=== PATIENT | female | born 1990 | race Two or more races ===

== ENCOUNTER 2024-08-31 09:10 | Inpatient (IN) | payer MEDICAID, OTHER ==
[~2024-08-31] VITALS: Ht 172.7 cm; Wt 127.6 kg
[2024-08-31 10:12] VITALS: PULSE 77; RESP 16; O2SAT 95
--- NOTE | 2024-08-31 10:17 | ECG ---
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
--- NOTE | 2024-08-31 10:21 | ED.PDOC ---
HPI Comments 33 y.o female presents to the ED for a chief complaint of substernal chest pain x 2 days associated with new onset RUQ pain, SOB, dysuria nausea and vomiting. Patient describes chest and abdominal pain as sharp, non radiating, and rating a 6/10 on the pain scale. Patient denies any cardiac history, fever, chills or leg swelling. Patient denies medical history. 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 History Family History Family History: Reviewed,noncontributory to illness Social History Smoker: Non-Smoker Alcohol: Denies ETOH Use Drugs: Denies Drug Use Lives In: Home Constitutional: denies: chills, diaphoresis, fatigue, fever, malaise, sweats, weakness, others EENTM: denies: blurred vision, double vision, ear bleeding, ear discharge, ear drainage, ear pain, ear ringing, eye pain, eye redness, hearing loss, mouth pain, mouth swelling, nasal discharge, nose bleeding, nose congestion, nose pain, photophobia, tearing, throat pain, throat swelling, voice changes, others Respiratory: reports: shortness of breath; denies: cough, hemoptysis, orthopnea, SOB at rest, SOB with excertion, stridor, wheezing, others Cardiovascular: reports: chest pain; denies: dizzy spells, diaphoresis, Dyspnea on exertion, edema, irregular heart beat, left arm pain, lightheadedness, palpitations, PND, syncope, others Gastrointestinal: reports: abdominal pain, nausea, vomiting; denies: abdomen distended, blood streaked bowels, constipated, diarrhea, dysphagia, difficulty swallowing, hematemesis, melena, poor appetite, poor fluid intake, rectal bleeding, rectal pain, others Genitourinary: denies: abnormal vagina bleeding, burning, dyspareunia, dysuria, flank pain, frequency, hematuria, incontinence, pain, , vagina discharge, urgency, others Neurological: denies: dizziness, fainting, headache, left sided numbness, left sided weakness, numbness, paresthesia, pre-existing deficit, right sided numbness, right sided weakness, seizure, speech problems, tingling, tremors, weakness, others Musculoskeletal: denies: back pain, gout, joint pain, joint swelling, muscle pain, muscle stiffness, neck pain, others Integumetry: denies: bruises, change in color, change in hair/nails, dryness, laceration, lesions, lumps, rash, wounds, others Allergic/Immunocompromised: denies: Difficulty Healing, Frequent Infections, Hives, Itching, others Hematologic/Lymphatic: denies: anemia, blood clots, easy bleeding, easy bru ising, swollen glands, others Endocrine: denies: excessive hunger, excessive sweating, excessive thirst, e xcessive urination, flushing, intolerance to cold, intolerance to heat, unexplained weight gain, unexplained weight loss, others Psychiatric: denies: anxiety, bipolar disorder, depression, hopeless, panic disorder, schizophrenia, sleepless, suicidal, others All Other Systems: Reviewed and Negative Physical Exam General Appearance: Moderate Distress HEENT: Normal ENT Inspection, Pharynx Normal, TMs Normal Neck: Full Range of Motion, Non-Tender, Normal, Normal Inspection Respiratory: Chest Non-Tender, Lungs Clear, No Accessory Muscle Use, No Respiratory Distress, Normal Breath Sounds Cardiovascular: No Edema, No JVD, No Murmur, No Gallop, Normal Peripheral Pulses, Regular Rate/Rhythm Breast Exam: Deferred Gastrointestinal: Epigastric, No Organomegaly, No Pulsatile Mass, Normal Bowel Sounds, Soft, Tenderness Genitalia: Deferred Pelvic: Deferred Rectal: Deferred Extremities: No calf tenderness, Normal capillary refill, Normal inspection, Normal range of motion, Non-tender, No pedal edema Musculoskeletal : Apperance: Normal 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 Was a procedure done?: No CP Differential Dx Differential Diagnosis: N/A Differential Diagnosis: Angina, Chest Wall Pain, Cholelithiasis, Costochondritis, Esophageal reflux/spasm, Gastritis, Myocardial Infarction, Pericarditis X-Ray, Labs, Meds, VS Vital Signs Date Time Temp Pulse Resp B/P (MAP) Pulse Ox O2 Delivery O2 Flow Rate FiO2 08/31/24 10:21 73 08/31/24 10:16 73 08/31/24 10:12 77 16 95 Room Air* 0 21 08/31/24 10:12 98.0 77 16 114/74 (87) 95 98.0 08/31/24 09:23 98.2 81 16 149/101 (117) 99 98.2 Lab Test 08/31/24 10:31 Range/Units White Blood Count 7.4 4.4-10.8 10^3/uL Red Blood Count 4.92 4.0-5.20 10^6/uL Hemoglobin 13.9 12.2-16.2 g/dL Hematocrit 42.2 36.0-46.0 % Mean Corpuscular Volume 85.8 80.0-100.0 fL Mean Corpuscular Hemoglobin 28.3 28.0-32.0 pg Mean Corpuscular Hemoglobin Concent 33.0 32.0-36.0 g/dL Red Cell Distribution Width 14.0 11.8-14.3 % Platelet Count 303 140-450 10^3/uL Mean Platelet Volume 8.5 6.9-10.8 fL Neutrophils (%) (Auto) 59.0 37.0-80.0 % Lymphocytes (%) (Auto) 32.6 10.0-50.0 % Monocytes (%) (Auto) 5.8 0.0-12.0 % Eosinophils (%) (Auto) 2.0 0.0-7.0 % Basophils (%) (Auto) 0.6 0.0-2.0 % Neutrophils # (Auto) 4.4 1.6-8.6 10 ^3/uL Lymphocytes # (Auto) 2.4 0.4-5.4 10 ^3/uL Monocytes # (Auto) 0.4 0-1.3 10 ^3/uL Eosinophils # (Auto) 0.1 0-0.8 10 ^3/uL Basophils # (Auto) 0 0-0.2 10 ^3/uL Nucleated Red Blood Cells 0.1 % Sodium Level 139 136-145 mmol/L Potassium Level 4.5 3.5-5.1 mmol/L Chloride Level 106 98-107 mmol/L Carbon Dioxide Level 25 20-31 mmol/L Anion Gap 8 5-15 Blood Urea Nitrogen 12 9-23 mg/dL Creatinine 0.59 0.550-1.02 mg/dL Glomerular Filtration Rate Calc 120 >90 mL/min BUN/Creatinine Ratio 20.3 H 10.0-20.0 Serum Glucose 97 74-106 mg/dL Calcium Level 10.1 8.7-10.4 mg/dL Total Bilirubin 0.4 0.2-1.0 mg/dL Aspartate Amino Transferase (AST) 36 13-40 U/L Alanine Aminotransferase (ALT) 35 7-40 U/L Alkaline Phosphatase 56 46-116 U/L Troponin I High Sensitivity < 3 L </=34 ng/L Total Protein 7.7 5.7-8.2 g/dL Albumin 4.9 H 3.2-4.8 g/dL Lipase 47 12-53 U/L Current Medications Medications (Trade) Dose Ordered Sig/Chase Route Start Time Stop Time Status Last Admin Sodium Chloride 500 ml @ 500 mls/hr Q1H ONCE IVB 08/31/24 10:15 08/31/24 11:14 DC 08/31/24 10:30 IV Hep-Lock was established The CBC and chemistry panel are within normal limits The lipase is within normal limits The patient was given normal saline at a 500 cc bolus At this time, the patient was being admitted to the hospitalist The patient was being diagnosed with a acute cholelithiasis The patient was being admitted at this time Images Reviewed?: Images reviewed and evaluated by me Time of 1ST Reevaluation: 10:21 Reevaluation 1ST: Unchanged Patient Education/Counseling: Diagnosis, Treatment, Prognosis Family Education/Counseling: No Family Present Departure 1 Departure Time of Disposition: 11:53 Impression: Primary Impression: Intractable abdominal pain Additional Impression: Cholelithiasis Qualified Codes: K80.20 - Calculus of gallbladder without cholecystitis without obstruction Disposition: ADMITTED INPATIENT Admit to: Med Surg Condition: Fair Critical Care Note Critical Care Time?: No Stability Stability form required: Yes Unstable for transfer: ED Physician Assesment (Clinical assesment) Heart Score Heart Score: Heart Score Response (Comments) Value History Slightly Suspicious 0 EKG Normal 0 Age <45 0 Risk Factors No known risk factors 0 Troponin N/A 0 Total 0 I personally scribed for ANYA GUAMAN MD ([email or web address]) on 08/31/24 at 10:21. El ectronically submitted by Anjana Loza ([facility]). ANYA GUAMAN MD Aug 31, 2024 10:21
[2024-08-31] MEDS: SODIUM CHLORIDE 0.9% 500 ML IVB ONE (10:30)
[2024-08-31 10:56] LABS: Basophils # (auto) 0 10 ^3/uL (0-0.2); Basophils % (auto) 0.6 % (0.0-2.0); Eosinophils # (auto) 0.1 10 ^3/uL (0-0.8); Hematocrit 42.2 % (36.0-46.0); Hemoglobin 13.9 g/dL (12.2-16.2); Lymphocytes # (auto) 2.4 10 ^3/uL (0.4-5.4); Lymphocytes % (auto) 32.6 % (10.0-50.0); Mean Corpuscular Hemoglobin 28.3 pg (28.0-32.0); Mean Corpuscular Volume 85.8 fL (80.0-100.0); Monocytes # (auto) 0.4 10 ^3/uL (0-1.3); Monocytes % (auto) 5.8 % (0.0-12.0); Neutrophils # (auto) 4.4 10 ^3/uL (1.6-8.6); Nucleated Red Blood Cells % 0.1 %; Platelet Count (auto) 303 10^3/uL (140-450); Red Blood Cells 4.92 10^6/uL (4.0-5.20); White Blood Cell 7.4 10^3/uL (4.4-10.8)
--- NOTE | 2024-08-31 10:57 | DVH ---
INDICATION: pain TECHNIQUE: Multiple real-time sonographic images were obtained of the right upper quadrant. COMPARISON: None FINDINGS: The liver demonstrates heterogeneous echotexture without focal mass lesions. The liver chelsy sures 41.6 cm. There is no intrahepatic or extrahepatic ductal dilatation. The common duct measures 0.6 cm. Multiple stones are seen. The gallbladder wall measures 0.2 cm and is within normal limits. The right kidney measures 11.3 cm. The right kidney is normal in contour, size, and shape. The echo genicity is normal. Mild right kidney hydronephrosis The pancreas is not well visualized due to overlying bowel gas. IMPRESSION: 1. Cholelithiasis without evidence of cholecystitis. 2. Mild right-sided hydronephrosis. 3. Hepatomegaly with steatosis.
[2024-08-31 11:07] LABS: Alanine Aminotransferase 35 U/L (7-40); Albumin 4.9 g/dL (3.2-4.8); Alkaline Phosphatase 56 U/L (46-116); Anion Gap 8 (5-15); Aspartate Aminotransferase 36 U/L (13-40); BUN/Creatinine Ratio 20.3 (10.0-20.0); Bilirubin, Total 0.4 mg/dL (0.2-1.0); Blood Urea Nitrogen 12 mg/dL (9-23); Calcium 10.1 mg/dL (8.7-10.4); Carbon Dioxide 25 mmol/L (20-31); Chloride 106 mmol/L (98-107); Glucose 97 mg/dL (74-106); Lipase 47 U/L (12-53); Potassium 4.5 mmol/L (3.5-5.1); Sodium 139 mmol/L (136-145); Total Protein 7.7 g/dL (5.7-8.2)
--- NOTE | 2024-08-31 13:31 | DVHHP2 ---
History of Present Illness Reason for Visit: abd pain History of Present Illness 33-year-old female denies any medical history surgical history tubal ligation chief complaints complains of right upper quadrant abdominal pain radiates to her right chest wall she states he has been going on for three days now. She said this feels like discomfort in his caused her to feel tired and exhausted and weak. She denies any fever does complain of some vomiting no diarrhea. Patient states eating makes her symptoms worse she denies any urinary discomfort or pain. When evaluating patient's labs and imaging CBC was unremarkable CMP unremarkable ultrasound showed gallstones mild right hydroneph rosis hepatomegaly with steatosis. There was no tearing sensation in her abdomen or back. With these findings we will admit Past Medical History Denies medical history Past Surgical History and tubal ligation Family History Reviewed, non-contributory to the management of this case. Past Social History The patient lives at home, denies smoking, alcohol or illicit drugs abuse. Review of Systems Constitutional: No: Fever, Chills, Sweats, Weakness, Malaise, Other Eyes: No: Pain, Vision change, Conjunctivae inflammation, Eyelid inflammation, Other, Redness ENT: No: Ear pain, Ear discharge, Nose pain, Nose discharge, Nose congestion, Mouth pain, Mouth swelling, Throat pain, Throat swelling, Other Respiratory: No: Cough, Dry, Shortness of breath, SOB with excertion, Wheezing, Hemoptysis, Pleuritic Pain, Sputum, Wheezing, Other Cardiovascular: Chest Pain, Palpitations; No: Orthopnea, Paroxysmal Noc. Dyspnea, Edema, Lt Headedness, Other Gastrointestinal: No: Nausea, Vomiting, Abdominal Pain, Diarrhea, Constipation, Melena, Hematochezia, Other Genitourinary: No Dysuria, No Frequency, No Incontinence, No Hematuria, No Retention, No Other Musculoskeletal: No: other, neck pain, shoulder pain, arm pain, back pain, hand pain, leg pain, foot pain Skin: No: Rash, Lesions, Jaundice, Bruising, Other Neurological: No: Weakness, Numbness, Incoordination, Change in speech, Confusion, Seizures, Other Allergies: Coded Allergies: NO KNOWN ALLERGIES (Unverified , 08/31/24) Exam Vital Signs Vital Signs Date Time Temp Pulse Resp B/P (MAP) Pulse Ox O2 Delivery O2 Flow Rate FiO2 08/31/24 11:51 98.8 71 18 124/75 (91) 100 98.8 08/31/24 10:12 Room Air* 0 21 General Appearance: Alert, Oriented X3, Cooperative, No acute distress HEENT: Atraumatic, PERRLA, EOMI, Mucous membr. moist/pink Respiratory: Clear to auscultation, Normal air movement Cardiovascular: Regular rate, Normal S1, Normal S2, No murmurs Abdominal: Normal bowel sounds, Soft, No tenderness, No hepatospenomegaly, No masses Extremities: No clubbing, No cyanosis, No edema, Normal pulses, No tenderness/swelling Skin: No rashes, No breakdown, No significant lesion Neuro: Normal speech, Strength at 5/5 X4 ext, Normal tone, Sensation intact, Cranial nerves 3-12 NL Psych/Mental Status: Mental status NL, Mood NL Labs/Xrays Ultrasound shows gallstones with mild right hydronephrosis hepatomegaly with steatosis I reviewed labs, imaging CT scan abdomen pelvis, EKG and all diagnostic studies on this patient from ED records and the medical chart Labs Test 08/31/24 10:31 Range/Units White Blood Count 7.4 4.4-10.8 10^3/uL Red Blood Count 4.92 4.0-5.20 10^6/uL Hemoglobin 13.9 12.2-16.2 g/dL Hematocrit 42.2 36.0-46.0 % Mean Corpuscular Volume 85.8 80.0-100.0 fL Mean Corpuscular Hemoglobin 28.3 28.0-32.0 pg Mean Corpuscular Hemoglobin Concent 33.0 32.0-36.0 g/dL Red Cell Distribution Width 14.0 11.8-14.3 % Platelet Count 303 140-450 10^3/uL Mean Platelet Volume 8.5 6.9-10.8 fL Neutrophils (%) (Auto) 59.0 37.0-80.0 % Lymphocytes (%) (Auto) 32.6 10.0-50.0 % Monocytes (%) (Auto) 5.8 0.0-12.0 % Eosinophils (%) (Auto) 2.0 0.0-7.0 % Basophils (%) (Auto) 0.6 0.0-2.0 % Neutrophils # (Auto) 4.4 1.6-8.6 10 ^3/uL Lymphocytes # (Auto) 2.4 0.4-5.4 10 ^3/uL Monocytes # (Auto) 0.4 0-1.3 10 ^3/uL Eosinophils # (Auto) 0.1 0-0.8 10 ^3/uL Basophils # (Auto) 0 0-0.2 10 ^3/uL Nucleated Red Blood Cells 0.1 % Sodium Level 139 136-145 mmol/L Potassium Level 4.5 3.5-5.1 mmol/L Chloride Level 106 98-107 mmol/L Carbon Dioxide Level 25 20-31 mmol/L Anion Gap 8 5-15 Blood Urea Nitrogen 12 9-23 mg/dL Creatinine 0.59 0.550-1.02 mg/dL Glomerular Filtration Rate Calc 120 >90 mL/min BUN/Creatinine Ratio 20.3 H 10.0-20.0 Serum Glucose 97 74-106 mg/dL Calcium Level 10.1 8.7-10.4 mg/dL Total Bilirubin 0.4 0.2-1.0 mg/dL Aspartate Amino Transferase (AST) 36 13-40 U/L Alanine Aminotransferase (ALT) 35 7-40 U/L Alkaline Phosphatase 56 46-116 U/L Troponin I High Sensitivity < 3 L </=34 ng/L Total Protein 7.7 5.7-8.2 g/dL Albumin 4.9 H 3.2-4.8 g/dL Lipase 47 12-53 U/L Assessment/Plan Assessment/Plan acute intractable abdominal pain likely from acute gallstones ordered morphine as needed for pain npo for now ordered ivf ordered protonix can consult surgical team ordered preg test fu results acute cholelithiasis N.p.o. for now ordered Ceftriaxone and Flagyl ordered IV fluids ordered General surgery consult follow-up recs ordered Protonix ordered Type and screen, inr ordered Morphine and Zofran acute right hydronephrosis ordered renal us fu results ordered ua fu results acute hepatomegaly and steatosis outpt follow up with gi fen/ppx protonix ivf no dvt ppx since ambulatory scd npo for now plan admit to medicine general surgery consult and evaluation Plan discussed with: Patient Date of Service: Aug 31, 2024 Billing Provider: DENNIS WHITE DNP Common Visit Codes: [id number] INP/OBS CARE (HIGH) DENNIS WHITE DNP Aug 31, 2024 13:31
[2024-08-31] MEDS ORDERED: NITROGLYCERIN 0.4 MG SL TAB SL PRN (14:15)
[2024-08-31] MEDS ORDERED: DOCUSATE SOD 100 MG CAP PO PRN (14:15)
[2024-08-31] MEDS ORDERED: ONDANSETRON HCL 4 MG/2 ML VIAL IV PRN (14:15)
[2024-08-31] MEDS ORDERED: MORPHINE SULFATE INJ 2 MG/ml SYRG IV PRN (14:15)
[2024-08-31 15:10] VITALS: BP 126/79; PULSE 74; RESP 20; TEMP 98.6; O2SAT 98
[2024-08-31 16:53] VITALS: BP 126/79; PULSE 74; RESP 20; TEMP 98.6; O2SAT 98
[2024-08-31] MEDS: SODIUM CHLORIDE 0.9% 1,000 ML IV SCH (17:52)
[2024-08-31] MEDS: PANTOPRAZOLE 40 MG/10 ML VIAL INJ IV ONE (17:52)
[2024-08-31] MEDS: cefTRIAXone 1GM/50ML D5W 50 ML IV ONE (17:53)
[2024-08-31 18:25] LABS: Urine Bacteria None Seen /hpf (None Seen)
[2024-08-31] MEDS: metroNIDAZOLE 500MG/100ML 100 ML IV ONE (18:44)
[2024-08-31 18:45] LABS: Urine Blood Negative /uL (Negative); Urine Clarity Clear (Clear); Urine Color Colorless (Yellow); Urine Protein, UAD Negative (Negative); Urine Specific Gravity 1.007 (1.001-1.035); Urine Squamous Epithelial Cell FEW /hpf (<5); Urine Urobilinogen Normal (Negative); Urine WBC 1 /HPF (0-5)
[2024-08-31 20:00] VITALS: PULSE 72; RESP 18
[2024-08-31 21:00] VITALS: BP 120/60; PULSE 70; RESP 18; TEMP 97.9; O2SAT 98
[2024-09-01] VITALS (8 sets, daily range): BP systolic 100–119; BP diastolic 50–81; PULSE 64–79; RESP 17–18; TEMP 97.6–98.8; O2SAT 92–99
[2024-09-01] MEDS: metroNIDAZOLE 500MG/100ML 100 ML IV SCH (00:21)
--- NOTE | 2024-09-01 04:07 | DVH ---
Exam: CT CT AB PEL WO CON-NO ORAL OR IV History: Eval for kidney stone Comparison Study: Right upper quadrant ultrasound dated 08/31/2024 Technique: Multidetector spiral CT of the abdomen and pelvis was performed from lung bases to pubic s ymphysis. Imaging was performed without intravenous contrast. Coronal and sagittal multiplanar reform ats were obtained from the axial data set by the technologist. Radiation Dose : 1. Abdomen/Pelvis: CTDIvol 21.93 mGy, DLP 1247.38 mGy*cm. Findings: Evaluation of vasculature and solid organs is limited due to lack of intravenous contrast use. Lung Bases: Lung bases are clear. Visualized portions of the heart and pericardium are unremarkable. Liver: The liver is enlarged measuring 25.5 cm in length. Low attenuating liver parenchyma. No foca l lesions. Gallbladder and Biliary Tree: Gallstone. No intrahepatic or extrahepatic biliary ductal dilatation. Spleen: Unremarkable Pancreas: The pancreas is grossly unremarkable. Adrenal Glands: Unremarkable Kidneys: Kidneys are unremarkable without calculi or hydronephrosis. GI tract: The stomach is grossly normal in appearance. No evidence of small bowel wall thickening or abnormal dilatation to suggest bowel obstruction. The colon is unremarkable. The appendix is not visu alized, however no inflammatory changes in the right lower quadrant to suggest acute appendicitis. Peritoneum/mesentery/retroperitoneum. No evidence of free intraperitoneal air. No ascites. No evidenc e of suspicious lymphadenopathy. Abdominal Wall: Unremarkable. Vasculature: The visualized abdominal aorta is normal in size and caliber. Evaluation of abdominal a nd pelvic vessels is limited due to lack of intravenous contrast. Urinary Bladder: Grossly unremarkable for degree of distention. Pelvic Organs: Unremarkable Musculoskeletal: No aggressive focal bony lesions, acute fractures or dislocation. IMPRESSION: 1. No acute process in the abdomen or pelvis. 2. Gallstone. 3. Hepatomegaly and hepatic steatosis. 4. No intrarenal calculi.
[2024-09-01 07:48] LABS: Basophils # (auto) 0 10 ^3/uL (0-0.2); Basophils % (auto) 0.4 % (0.0-2.0); Eosinophils # (auto) 0.1 10 ^3/uL (0-0.8); Eosinophils % (auto) 1.9 % (0.0-7.0); Hematocrit 37.9 % (36.0-46.0); Lymphocytes % (auto) 27.3 % (10.0-50.0); Mean Corpuscular Hemoglobin 29.3 pg (28.0-32.0); Mean Corpuscular Hgb Conc. 34.3 g/dL (32.0-36.0); Mean Corpuscular Volume 85.5 fL (80.0-100.0); Monocytes # (auto) 0.4 10 ^3/uL (0-1.3); Monocytes % (auto) 5.9 % (0.0-12.0); Neutrophils # (auto) 4.8 10 ^3/uL (1.6-8.6); Neutrophils % (auto) 64.5 % (37.0-80.0); Nucleated Red Blood Cells % 0.1 %; Platelet Count (auto) 243 10^3/uL (140-450); Red Blood Cells 4.43 10^6/uL (4.0-5.20); Red Cell Distribution Width 13.9 % (11.8-14.3); White Blood Cell 7.4 10^3/uL (4.4-10.8)
[2024-09-01 08:08] LABS: Alanine Aminotransferase 30 U/L (7-40); Albumin 4.2 g/dL (3.2-4.8); Alkaline Phosphatase 54 U/L (46-116); Anion Gap 10 (5-15); Aspartate Aminotransferase 21 U/L (13-40); BUN/Creatinine Ratio 15.2 (10.0-20.0); Bilirubin, Total 0.6 mg/dL (0.2-1.0); Blood Urea Nitrogen 10 mg/dL (9-23); Calcium 9.8 mg/dL (8.7-10.4); Carbon Dioxide 23 mmol/L (20-31); Potassium 3.9 mmol/L (3.5-5.1); Sodium 141 mmol/L (136-145); Total Protein 6.5 g/dL (5.7-8.2)
[2024-09-01 08:11] LABS: Chloride 108 mmol/L (98-107); Glucose 108 mg/dL (74-106)
[2024-09-01] MEDS: cefTRIAXone 1GM/50ML D5W 50 ML IV SCH (08:44)
[2024-09-01] MEDS: PANTOPRAZOLE 40 MG/10 ML VIAL INJ IV SCH (09:55)
--- NOTE | 2024-09-01 12:36 | DVHPN2 ---
Progress Note Date Seen: Sep 01, 2024 Medical Necessity Reason Pt with a Central, PICC or Fol: No Subjective Patient reports: No new complaints Review of Systems: HEENT:Normal, CVS:Normal, RESPIRATORY:Normal, GI:Normal, :Normal, MSK:Normal, NEURO:Normal Objective vital signs Vital Sign Date Time Temp Pulse Resp B/P (MAP) Pulse Ox O2 Delivery O2 Flow Rate FiO2 09/01/24 09:19 98.1 75 18 105/52 (69) 94 98.1 08/31/24 20:00 Room Air* 0 21 Total Intake and Output 08/31/24 08/31/24 09/01/24 15:00 23:00 07:00 Intake Total 500 ml 540 ml 100 ml Balance 500 ml 540 ml 100 ml medications Current Medications Medications Dose Ordered Sig/Chase Route Start Time Stop Time Status Last Admin Dose Admin Sodium Chloride 1,000 ml @ 120 mls/hr Q8H20M IV 08/31/24 14:15 09/01/24 08:44 120 MLS/HR Ondansetron HCl 4 mg Q4HP PRN IV 08/31/24 14:15 Docusate Sodium 100 mg BIDPRN PRN PO 08/31/24 14:15 Morphine Sulfate 2 mg Q4HPRN PRN IV 08/31/24 14:15 Nitroglycerin 0.4 mg Q5MINP PRN SL 08/31/24 14:15 Ceftriaxone Sodium 50 ml @ 100 mls/hr DAILY@09 IV 09/01/24 09:00 09/01/24 08:44 100 MLS/HR Metronidazole 100 ml @ 100 mls/hr Q8H IV 09/01/24 01:00 09/01/24 09:55 100 MLS/HR Pantoprazole Sodium 40 mg DAILY IV 09/01/24 10:00 09/01/24 09:55 40 MG Examination: GENERAL:Normal, HEENT:Normal, NECK:Normal, LUNGS:Normal, CVS:Normal, ABDOMEN:Normal, MSK:Normal, SKIN:Normal, NEURO:Normal, :Normal laboratory and microbiology Laboratory Tests 09/01/24 06:44 Test 09/01/24 06:44 Range/Units Serum Glucose 108 H 74-106 mg/dL Problem List/Assessment/Plan Problem List/Assessment/Plan #1 abd pain with gallstone: clear liquid diet, iv antibiotics #2 hepatic steatosis #3 morbid obesity wishes to hold off surgery for now Plan discussed with: Patient My Orders My Orders Orders - PAT CLEMONS MD Procedure Category Date Status Time 0.9% Ns 1000 Ml PHA 09/01/24 Verified 12:45 Clear Liq Diet DIET 09/01/24 Verified Lunch Complete Blood Count LAB 09/02/24 Verified 06:00 Comprehensive LAB 09/02/24 Verified Metabolic Panel 06:00 Date of Service: Sep 01, 2024 Billing Provider: PAT CLEMONS MD Common Visit Codes: [id number] INP/OBS CARE(HIGH) PAT CLEMONS MD Sep 01, 2024 12:36
[2024-09-01] MEDS: SODIUM CHLORIDE 0.9% 1,000 ML IV SCH (16:49)
[2024-09-01] MEDS: ACETAMINOPHEN 325 MG TAB PO PRN (21:48)
[2024-09-02 01:00] VITALS: BP 111/67; PULSE 80; RESP 18; TEMP 97.9; O2SAT 98
[2024-09-02 05:00] VITALS: BP 120/80; PULSE 69; RESP 18; TEMP 97.6; O2SAT 99
[2024-09-02 07:54] LABS: Basophils # (auto) 0 10 ^3/uL (0-0.2); Basophils % (auto) 0.3 % (0.0-2.0); Eosinophils # (auto) 0.1 10 ^3/uL (0-0.8); Eosinophils % (auto) 1.7 % (0.0-7.0); Hematocrit 39.6 % (36.0-46.0); Hemoglobin 13.6 g/dL (12.2-16.2); Lymphocytes % (auto) 28.3 % (10.0-50.0); Mean Corpuscular Hemoglobin 29.3 pg (28.0-32.0); Mean Corpuscular Hgb Conc. 34.3 g/dL (32.0-36.0); Mean Corpuscular Volume 85.4 fL (80.0-100.0); Monocytes # (auto) 0.4 10 ^3/uL (0-1.3); Monocytes % (auto) 5.4 % (0.0-12.0); Neutrophils # (auto) 4.6 10 ^3/uL (1.6-8.6); Neutrophils % (auto) 64.3 % (37.0-80.0); Nucleated Red Blood Cells % 0.1 %; Platelet Count (auto) 251 10^3/uL (140-450); Red Blood Cells 4.64 10^6/uL (4.0-5.20); Red Cell Distribution Width 13.8 % (11.8-14.3); White Blood Cell 7.2 10^3/uL (4.4-10.8)
[2024-09-02 08:00] VITALS: PULSE 60; RESP 17; O2SAT 96
[2024-09-02 08:09] LABS: Alanine Aminotransferase 31 U/L (7-40); Alkaline Phosphatase 54 U/L (46-116); Anion Gap 7 (5-15); Aspartate Aminotransferase 15 U/L (13-40); BUN/Creatinine Ratio 11.7 (10.0-20.0); Bilirubin, Total 0.5 mg/dL (0.2-1.0); Calcium 9.6 mg/dL (8.7-10.4); Carbon Dioxide 25 mmol/L (20-31); Potassium 3.9 mmol/L (3.5-5.1); Sodium 142 mmol/L (136-145); Total Protein 6.6 g/dL (5.7-8.2)
[2024-09-02 08:10] LABS: Albumin 4.3 g/dL (3.2-4.8); Blood Urea Nitrogen 7 mg/dL (9-23); Chloride 110 mmol/L (98-107); Glucose 111 mg/dL (74-106)
[2024-09-02 08:40] VITALS: BP 130/69; PULSE 60; RESP 17; TEMP 98; O2SAT 96
[2024-09-02] MEDS ORDERED: LEVO500T91 PO (11:00)
[2024-09-02] MEDS ORDERED: MET500T PO (11:00)
--- NOTE | 2024-09-02 11:07 | DVHDS ---
DATE OF DISCHARGE: 09/02/2024 HISTORY OF PRESENT ILLNESS: The patient is a 33-year-old lady who was admitted with complaints of abdominal pain for 3 days prior to admission. HOSPITAL COURSE: The patient had a CT of abdomen and pelvis that showed evidence of gallstone. There was also hepatic steatosis. The patient had a gallbladder ultrasound that showed cholelithiasis with hepatomegaly and steatosis as well as mild hydronephrosis. The patient's symptoms are now improved. She did not wish any surgery at this time and wants to do it as outpatient. The patient will be discharged home to be on Levaquin 500 mg daily for 5 days and Flagyl 500 mg t.i.d. for 5 days. She will follow up with her primary in 1 week. FINAL DIAGNOSES: Therefore, * Abdominal pain with cholelithiasis. * Hepatic steatosis. * Morbid obesity. Time spent in discharge planning and review of plan with the patient and family at the bedside was 38 minutes. MD JONY Beltran/ANA TID: [id number] RECEIPT: [id number]
--- NOTE | 2024-09-02 11:11 | DVHDS2 ---
Discharge Summary Date of Admission Aug 31, 2024 at 14:01 Date of Discharge: Sep 02, 2024 Labs/Diagnostic Data: Laboratory Results Test 09/02/24 06:41 08/31/24 17:20 08/31/24 10:31 White Blood Count 7.2 10^3/uL (4.4-10.8) Red Blood Count 4.64 10^6/uL (4.0-5.20) Hemoglobin 13.6 g/dL (12.2-16.2) Hematocrit 39.6 % (36.0-46.0) Mean Corpuscular Volume 85.4 fL (80.0-100.0) Mean Corpuscular Hemoglobin 29.3 pg (28.0-32.0) Mean Corpuscular Hemoglobin Concent 34.3 g/dL (32.0-36.0) Red Cell Distribution Width 13.8 % (11.8-14.3) Platelet Count 251 10^3/uL (140-450) Mean Platelet Volume 8.2 fL (6.9-10.8) Neutrophils (%) (Auto) 64.3 % (37.0-80.0) Lymphocytes (%) (Auto) 28.3 % (10.0-50.0) Monocytes (%) (Auto) 5.4 % (0.0-12.0) Eosinophils (%) (Auto) 1.7 % (0.0-7.0) Basophils (%) (Auto) 0.3 % (0.0-2.0) Neutrophils # (Auto) 4.6 10 ^3/uL (1.6-8.6) Lymphocytes # (Auto) 2.0 10 ^3/uL (0.4-5.4) Monocytes # (Auto) 0.4 10 ^3/uL (0-1.3) Eosinophils # (Auto) 0.1 10 ^3/uL (0-0.8) Basophils # (Auto) 0 10 ^3/uL (0-0.2) Nucleated Red Blood Cells 0.1 % Sodium Level 142 mmol/L (136-145) Potassium Level 3.9 mmol/L (3.5-5.1) Chloride Level 110 mmol/L (98-107) Carbon Dioxide Level 25 mmol/L (20-31) Anion Gap 7 (5-15) Blood Urea Nitrogen 7 mg/dL (9-23) Creatinine 0.60 mg/dL (0.550-1.02) Glomerular Filtration Rate Calc 120 mL/min (>90) BUN/Creatinine Ratio 11.7 (10.0-20.0) Serum Glucose 111 mg/dL (74-106) Calcium Level 9.6 mg/dL (8.7-10.4) Total Bilirubin 0.5 mg/dL (0.2-1.0) Aspartate Amino Transferase (AST) 15 U/L (13-40) Alanine Aminotransferase (ALT) 31 U/L (7-40) Alkaline Phosphatase 54 U/L (46-116) Total Protein 6.6 g/dL (5.7-8.2) Albumin 4.3 g/dL (3.2-4.8) Urine Color Colorless (Yellow) Urine Clarity Clear (Clear) Urine pH 6.0 (5.0-9.0) Urine Specific [place] 1.007 (1.001-1.035) Urine Protein Negative (Negative) Urine Ketones Negative (Negative) Urine Blood Negative /uL (Negative) Urine Nitrite Negative (Negative) Urine Bilirubin Negative (Negative) Urine Urobilinogen Normal mg/dL (Negative) Urine Leukocyte Esterase 1+ /uL (Negative) Urine RBC 1 /hpf (0 - 4) Urine Microscopic WBC 1 /HPF (0-5) Urine Squamous Epithelial Cells Few /hpf (<5) Urine Bacteria None seen /hpf (None Seen) Urine Glucose Normal mg/dL (Normal) Urine Test Negative (Negative) Troponin I High Sensitivity < 3 ng/L (</=34) Lipase 47 U/L (12-53) Other Laboratory Tests 09/02/24 06:41 Brief Hx & Hospital Course: see dictated note Condition at Discharge: Good Final Diagnosis/Problems List gallstone Discharge Disposition: Home Discharge Instruct/Medications Diet: Cardiac 2g Na,low cholest Activity: No Restrictions, As Tolerated Follow Up/Referral: fu with pcp in 1 wk Medications: script to pharmacy Discharge Statement: "Patient was advised to return to the ER or call 911 if any headaches, dizziness, shortness of breath, chest pain, abdominal pain, bleeding, fevers, or worsening of medical condition. Patient was counseled about treatment plan, medications, possible side effects, patientverbalized understanding. All questions were answered to the best of my ability. This discharge took greater then 30 minutes in planning, reviewing documentation, counseling the patient, and discussing with other team members." ASSESSMENT ASSESSMENT Assessment gallstone Date of Service: Sep 02, 2024 Billing Provider: PAT CLEMONS MD Common Visit Codes: [id number]/OBS DISCH DAY >30min PAT CLEMONS MD Sep 02, 2024 11:11
== END 2024-09-02 12:00 | disposition home or self-care (01) ==
LOC: ER 09:10 → OVERFLOW 14:01 → WEST WING 15:10
PROVIDERS: ADMIT Internal Medicine; ATTEND Internal Medicine
DX: K80.20 Calculus of gallbladder without cholecystitis without obstruction (principal); N13.30 Unspecified hydronephrosis; K76.0 Fatty (change of) liver, not elsewhere classified; R16.0 Hepatomegaly, not elsewhere classified; E66.01 Morbid (severe) obesity due to excess calories; Z98.891 History of uterine scar from previous surgery; Z79.899 Other long term (current) drug therapy; Z68.41 Body mass index [BMI] 40.0-44.9, adult
CPT/HCPCS: 36415; 74176; 76705; 80053; 81001; 81025; 83690; 84484; 85025; 93005; G0378; J2470; J3490

== ENCOUNTER → 2024-09-09 | Outpatient (CLI) | payer MEDICAID ==
[~2024-09-09] MED LIST: LEVO500T91 PO; MET500T PO
[2024-09-09 11:08] LABS: Urine Bacteria FEW /hpf (None Seen); Urine Blood Negative /uL (Negative); Urine Clarity Clear (Clear); Urine Color Dark-Yellow (Yellow); Urine Protein, UAD Negative (Negative); Urine Specific Gravity 1.007 (1.001-1.035); Urine Squamous Epithelial Cell FEW /hpf (<5); Urine Urobilinogen Normal (Negative); Urine WBC 1 /HPF (0-5)
== END | disposition home or self-care (01) ==
LOC: LAB 10:28
PROVIDERS: ATTEND Internal Medicine
DX: N39.0 Urinary tract infection, site not specified (principal)
CPT/HCPCS: 81001; 87086

== ENCOUNTER 2025-01-19 13:41 | Outpatient (CLI) | payer MEDICAID ==
[2025-01-19 13:59] LABS: Urine Protein, UAD Negative (Negative)
== END 2025-01-19 17:00 | disposition home or self-care (01) ==
LOC: LAB 13:41
PROVIDERS: ATTEND Licensed Practical Nurse
DX: N39.0 Urinary tract infection, site not specified (principal)
CPT/HCPCS: 81001; 87086

== ENCOUNTER 2025-01-27 09:45 | Outpatient (CLI) | payer MEDICAID | END 2025-01-27 17:00 | disposition home or self-care (01) | LOC: LAB 09:45 | DX: Z87.440 Personal history of urinary (tract) infections (principal) | CPT/HCPCS: 87086 ==